=== PATIENT | male | born 1965 | race Caucasian/White ===

== ENCOUNTER 2016-06-05 16:05 | Emergency (ER) | payer OTHER ==
[~2016-06-05] VITALS: Ht 200.7 cm; Wt 105.0 kg
[~2016-06-05 16:05] MED LIST: METH500T3 PO; PERC5TAB12 PO
[2016-06-05 16:20] VITALS: BP 134/97; PULSE 75; RESP 16; TEMP 98.5; O2SAT 97
[2016-06-05] MEDS ORDERED: BP MED PO (16:32)
[2016-06-05] MEDS ORDERED: PRED20 PO (17:15)
[2016-06-05] MEDS ORDERED: ZITHTAB PO (17:15)
[2016-06-05] MEDS ORDERED: VENTAER INH (17:15)
[2016-06-05] MEDS ORDERED: BENZ100 PO (17:15)
--- NOTE | 2016-06-05 17:15 | PD ---
HPI Chief Complaint: Cold / Flu Symptoms Time Seen by Provider: 17:15 Travel History International Travel<30 days: No Contact w/Intl Traveler<30days: No Traveled to known affect area: No History of Present Illness HPI 50-year-old male with a history of hypertension presents to the emergency department for evaluation of relative cough and chest tightness. Patient states that for the past 6 days he has had a productive cough of yellow sputum. States over the past 2-3 days he has felt as though he has chest tightness and wheezing. States that the symptoms worsen at night. Denies fever, chills, nausea, vomiting, chest pain, shortness of breath, lightheadedness, dizziness, sore throat, ear pain. States that he has tried to take leftover steroids at home and his daughter's leftover amoxicillin and his daughter's nebulizer treatments. States that he has not had any improvement of symptoms with these medications. Denies any history of smoking or lung disease. No other complaints. PFSH Past Medical History Arthritis: No Blood Disorders: No Cancer: No Cardiovascular Problems: Yes (HTN) Chemotherapy: No Diminished Hearing: No Diverticulitis: Yes Endocrine: No Gastrointestinal Disorders: Yes (COLON RUPTURED 2006. PT HAD COLOSTOMY WHICH WAS REVERSED FEBRUARY 2007) GERD: No Glaucoma: No Gout: Yes Genitourinary: Yes (PROSTATITIS 03/26) Hepatitis: No Hiatal Hernia: No Hypertension: Yes Immune Disorder: No Kidney Stones: No Musculoskeletal: Yes (TENDONITIS RIGHT HEEL, AND HERNIATED DISC) Neurologic: No Psychiatric: No Reproductive: No Respiratory: No Immunizations Current: No Radiation Therapy: No Renal Failure: No Ulcer: No Tetanus Vaccination: Unknown Past Surgical History Abdominal Surgery: Yes (COLON RUPTURE X/ RESECTION, COLOSTOMY & REVERSAL 2006) AICD: No Appendectomy: No Arteriovenous Shunt: No Cardiac Surgery: No Cholecystectomy: No Ear Surgery: No Endocrine Surgery: No Eye Surgery: No Genitourinary Surgery: No Gynecologic Surgery: No Insulin Pump: No Joint Replacement: No Neurologic Surgery: No Oral Surgery: No Pacemaker: No Thoracic Surgery: No Other Surgery: Yes Social History Alcohol Use: No Tobacco Use: No Substance Use: No Allergies-Medications (Allergen,Severity, Reaction): Coded Allergies: No Known Allergies (Unverified , 06/05/16) Reported Meds & Prescriptions Reported Meds & Active Scripts Active Tessalon Perles (Benzonatate) 100 Mg Cap 100 Mg PO TID PRN 10 Days Ventolin Hfa 18 GM Inh (Albuterol Sulfate) 90 Mcg/Act Aer 2 Puff INH Q4-6H PRN Zithromax Z-Manpreet (Azithromycin) 250 Mg Dspk 250 Mg PO DIRECTED 500 MG (2 tabs) day 1, then 1 tab days 2-5. Prednisone 20 Mg Tab 20 Mg PO BID 5 Days Reported [Bp Med] 2.5 Mg PO DAILY Review of Systems Except as stated in HPI: all other systems reviewed are Neg Physical Exam Narrative GENERAL: Well-nourished and well-developed pleasant patient in no acute distress who is nontoxic appearing. SKIN: Warm and dry. HEAD: Normocephalic and atraumatic. EYES: No injection, drainage, or hyphema noted. PERRLA. EOMI. ENT: No nasal drainage noted. Oropharynx is clear and the TMs are normal with good landmarks. NECK: Supple and the trachea is midline. No lymphadenopathy is noted throughout the cervical chains. CARDIOVASCULAR: Regular rate and rhythm. RESPIRATORY: Breath sounds are equal bilaterally with no accessory muscle use, wheezing, rhonchi, or crackles. MUSCULOSKELETAL: No obvious deformities, swelling, cyanosis, or ecchymosis is present throughout the upper and lower extremities. Patient has full range of motion without any signs of neurovascular compromise. NEUROLOGICAL: Awake, alert, and oriented. Normal speech and gait. Cranial nerves are grossly intact. Data Data Last Documented VS Vital Signs Date Time Temp Pulse Resp B/P Pulse Ox O2 Delivery O2 Flow Rate FiO2 06/05/16 16:20 98.5 75 16 134/97 97 [facility] Medical Decision Making Medical Screen Exam Complete: Yes Emergency Medical Condition: Yes Differential Diagnosis Acute bronchitis versus pneumonia versus URI Narrative Course 50-year-old male presents to the emergency department for evaluation of productive cough and chest tightness. Patient is afebrile, vital signs are stable. Physical examination is essentially unremarkable. The patient has acute bronchitis. We'll give him a prescription for a Z-Manpreet, prednisone and an albuterol inhaler. Discussed supportive care and when to return to the emergency department. He is advised to follow-up with his PCP. Patient verbalizes understanding and agreement with treatment plan. Diagnosis Primary Impression: Acute bronchitis Qualified Code: J20.9 - Acute bronchitis, unspecified organism Referrals: Primary Care Physician Patient Instructions: Acute Bronchitis (ED), General Instructions Additional Instructions: Continue taking Robitussin or Mucinex. Take medications as prescribed with food and a full glass of water. Follow-up with your Primary Care Physician. Return to the ED for any acute worsening of symptoms. Med/Other Pt SpecificInfo: Prescription(s) given Scripts Benzonatate (Tessalon Perles)100 Mg [id number] Mg PO TID PRN (COUGH) 10 Days Ref 0 Prov:Mahamed Herrera MD 06/05/16 Albuterol 18 GM Inh (Ventolin Hfa 18 GM Inh)90 Mcg/Act Aer2 Puff INH Q4-6H PRN ( SHORTNESS OF BREATH) #1 INHALER Ref 0 Prov:Mahamed Herrera MD 06/05/16 Azithromycin (Zithromax Z-Manpreet)250 Mg [id number] Mg PO DIRECTED #1 DSPK Ref 0 500 MG (2 tabs) day 1, then 1 tab days 2-5. Prov:Mahamed Herrera MD 06/05/16 Prednisone 20 Mg Tab20 Mg PO BID 5 Days Ref 0 Prov:Mahamed Herrera MD 06/05/16 Disposition: 01 DISCHARGE HOME Condition: Stable Darline Pozo Jun 05, 2016 17:15
== END 2016-06-05 17:20 | disposition home or self-care (01) ==
LOC: PHEFT 16:05
DX: J20.9 Acute bronchitis, unspecified (principal); I10 Essential (primary) hypertension; M10.9 Gout, unspecified; R06.2 Wheezing
CPT/HCPCS: 99283

== ENCOUNTER 2016-09-01 12:35 | Emergency (ER) | payer OTHER ==
[~2016-09-01 12:35] MED LIST changes: +BENZ100 PO; +BP MED PO; -METH500T3 PO; -PERC5TAB12 PO; +PRED20 PO; +VENTAER INH; +ZITHTAB PO
[2016-09-01 12:50] VITALS: BP 142/93; PULSE 84; RESP 16; TEMP 98.6; O2SAT 96
[2016-09-01] MEDS ORDERED: SODIUM CHLORIDE 0.9% FLUSH 10 ML FLUSH IVF PRN (13:15)
--- NOTE | 2016-09-01 13:19 | PD ---
HPI Chief Complaint: Chest Pain Time Seen by Provider: 13:07 Travel History International Travel<30 days: No Contact w/Intl Traveler<30days: No Traveled to known affect area: No History of Present Illness HPI This patient complains of chest pain. Location is left upper chest. It radiates toward his left shoulder. It started at 845 this morning. She is getting out of the shower when this started. Not exerting. [place] like a pressure and aching. He took 4 baby aspirin. It went away shortly after. He went on with his day. However about 30 minutes ago it came back again and so he came to the emergency room. He has no personal history of cardiac disease. Severity is moderate. Aspirin seem to be and alleviating factor. Duration one day PFSH Past Medical History Arthritis: No Blood Disorders: No Cancer: No Cardiovascular Problems: Yes (HTN) Chemotherapy: No Diminished Hearing: No Diverticulitis: Yes Endocrine: No Gastrointestinal Disorders: Yes (COLON RUPTURED 2006. PT HAD COLOSTOMY WHICH WAS REVERSED FEBRUARY 2007) GERD: No Glaucoma: No Gout: Yes Genitourinary: Yes (PROSTATITIS 03/26) Hepatitis: No Hiatal Hernia: No Hypertension: Yes Immune Disorder: No Kidney Stones: No Musculoskeletal: Yes (TENDONITIS RIGHT HEEL, AND HERNIATED DISC) Neurologic: No Psychiatric: No Reproductive: No Respiratory: No Immunizations Current: No Radiation Therapy: No Renal Failure: No Ulcer: No Tetanus Vaccination: Unknown Influenza Vaccination: No Past Surgical History Abdominal Surgery: Yes (COLON RUPTURE X/ RESECTION, COLOSTOMY & REVERSAL 2006) AICD: No Appendectomy: No Arteriovenous Shunt: No Cardiac Surgery: No Cholecystectomy: No Ear Surgery: No Endocrine Surgery: No Eye Surgery: No Genitourinary Surgery: No Gynecologic Surgery: No Insulin Pump: No Joint Replacement: No Neurologic Surgery: No Oral Surgery: No Pacemaker: No Thoracic Surgery: No Other Surgery: Yes Social History Alcohol Use: No Tobacco Use: No Substance Use: No Allergies-Medications (Allergen,Severity, Reaction): Coded Allergies: No Known Allergies (Unverified , 09/01/16) Reported Meds & Prescriptions Reported Meds & Active Scripts Active Tessalon Perles (Benzonatate) 100 Mg Cap 100 Mg PO TID PRN 10 Days Ventolin Hfa 18 GM Inh (Albuterol Sulfate) 90 Mcg/Act Aer 2 Puff INH Q4-6H PRN Zithromax Z-Manpreet (Azithromycin) 250 Mg Dspk 250 Mg PO DIRECTED 500 MG (2 tabs) day 1, then 1 tab days 2-5. Prednisone 20 Mg Tab 20 Mg PO BID 5 Days Reported [Bp Med] 2.5 Mg PO DAILY Review of Systems General / Constitutional: No: Fever Eyes: No: Visual changes HENT: No: Headaches Cardiovascular: Positive: Chest Pain or Discomfort Respiratory: No: Shortness of Breath Gastrointestinal: No: Abdominal Pain Genitourinary: No: Dysuria Musculoskeletal: No: Pain Skin: No Rash Neurologic: No: Weakness Psychiatric: No: Depression Endocrine: No: Polydipsia Hematologic/Lymphatic: No: Easy Bruising Physical Exam Narrative GENERAL: Well-nourished, well-developed patient in no apparent distress. SKIN: Focused skin assessment reveals no rash and nodules. Skin is Warm and dry. HEAD: Atraumatic. Normocephalic. EYES: Pupils equal and round. No scleral icterus. No injection or drainage. ENT: No nasal bleeding or discharge. Mucous membranes pink and moist. NECK: Trachea midline. No JVD. CARDIOVASCULAR: Regular rate and rhythm. No murmur appreciated. RESPIRATORY: No accessory muscle use. Clear to auscultation. Breath sounds equal bilaterally. GASTROINTESTINAL: Abdomen soft, non-tender, nondistended. Hepatic and splenic margins not palpable. MUSCULOSKELETAL: No obvious deformities. No clubbing. No cyanosis. No edema. NEUROLOGICAL: Awake and alert. No obvious cranial nerve deficits. Motor grossly within normal limits. Normal speech. PSYCHIATRIC: Appropriate mood and affect; insight and judgment normal. Data Data Last Documented VS Vital Signs Date Time Temp Pulse Resp B/P Pulse Ox O2 Delivery O2 Flow Rate FiO2 09/01/16 12:55 Room Air 09/01/16 12:50 16 96 09/01/16 12:50 98.6 84 142/93 Orders Electrocardiogram (09/01/16 13:13) Basic Metabolic Panel (Bmp) (09/01/16 13:13) Ckmb (Isoenzyme) Profile (09/01/16 13:13) Complete Blood Count With Diff (09/01/16 13:13) Prothrombin Time / Inr (Pt) (09/01/16 13:13) Act Partial Throm Time (Ptt) (09/01/16 13:13) Troponin I (09/01/16 13:13) Chest, Single Ap (09/01/16 13:13) Ecg Monitoring (09/01/16 13:13) Iv Access Insert/Monitor (09/01/16 13:13) Oximetry (09/01/16 13:13) Sodium Chloride 0.9% Flush (Ns Flush) (09/01/16 13:15) CKMB (09/01/16 13:15) CKMB% (09/01/16 13:15) Labs Laboratory Tests Test 09/01/16 13:15 White Blood Count 7.8 TH/MM3 Red Blood Count 4.69 MIL/MM3 Hemoglobin 13.8 GM/DL Hematocrit 40.8 % Mean Corpuscular Volume 87.2 FL Mean Corpuscular Hemoglobin 29.4 PG Mean Corpuscular Hemoglobin 33.8 % Concent Red Cell Distribution Width 13.0 % Platelet Count 264 TH/MM3 Mean Platelet Volume 8.4 FL Neutrophils (%) (Auto) 65.9 % Lymphocytes (%) (Auto) 24.3 % Monocytes (%) (Auto) 6.0 % Eosinophils (%) (Auto) 3.4 % Basophils (%) (Auto) 0.4 % Neutrophils # (Auto) 5.1 TH/MM3 Lymphocytes # (Auto) 1.9 TH/MM3 Monocytes # (Auto) 0.5 TH/MM3 Eosinophils # (Auto) 0.3 TH/MM3 Basophils # (Auto) 0.0 TH/MM3 CBC Comment DIFF FINAL Differential Comment Prothrombin Time 10.7 SEC Prothromb Time International 1.0 RATIO Ratio Activated Partial 27.5 SEC Thromboplast Time Sodium Level 143 MEQ/L Potassium Level 3.7 MEQ/L Chloride Level 105 MEQ/L Carbon Dioxide Level 26.4 MEQ/L Anion Gap 12 MEQ/L Blood Urea Nitrogen 14 MG/DL Creatinine 1.10 MG/DL Estimat Glomerular Filtration 71 ML/MIN Rate Random Glucose 91 MG/DL Calcium Level 9.0 MG/DL Total Creatine Kinase 209 U/L Creatine Kinase MB 1.5 NG/ML Troponin I LESS THAN 0.02 NG/ML MDM Medical Decision Making Medical Screen Exam Complete: Yes Emergency Medical Condition: Yes Medical Record Reviewed: Yes Differential Diagnosis Differential diagnosis includes OK, angina, pericarditis, pleurisy, GERD, anxiety. Narrative Course I have reviewed the patient's electronic medical record. No prior stress testing here IV placed I reviewed the EKG which shows sinus rhythm and no ST elevation I reviewed the chest x-ray which is normal Extended cardiac monitoring shows sinus rhythm without ectopy CBC is normal Metabolic profile is normal CK is normal Troponin is normal Coagulation studies are normal He had multiple aspirin today Patient is multiple risk factors including hypertension and hyperlipidemia and family history of cardiac disease. I recommended telemetry observation in the chest pain center and discussed at length with the patient. We reviewed his risk factors and my rationale. He thought about it and is decided to sign out AGAINST MEDICAL ADVICE. I advised him to return if he worsens or changes his mind. He is planning to call his family physician discuss outpatient stress testing I told him to take a daily aspirin until that time Diagnosis Primary Impression: Chest pain in adult Disposition: 07 AGAINST MEDICAL ADVICE Red Tamayo MD Sep 01, 2016 13:19
[2016-09-01 13:28] LABS: AUTOMATED NEUTROPHIL # 5.1 TH/MM3 (1.8-7.7); BASOPHIL % 0.4 % (0.0-2.0); EOSINOPHIL # 0.3 TH/MM3 (0-0.4); EOSINOPHIL % 3.4 % (0.0-4.0); HEMATOCRIT 40.8 % (39.0-51.0); HEMO FLAGS DIFF FINAL; LYMPH % 24.3 % (9.0-44.0); LYMPHOCYTE # 1.9 TH/MM3 (1.0-4.8); MEAN CELL VOLUME 87.2 FL (80.0-100.0); MEAN CORPUSCULAR HEMOGLOBIN 29.4 PG (27.0-34.0); MEAN CORPUSCULAR HGB CONC 33.8 % (32.0-36.0); NEUT % 65.9 % (16.0-70.0); PLATELET COUNT 264 TH/MM3 (150-450); RED BLOOD COUNT 4.69 MIL/MM3 (4.50-5.90); WHITE BLOOD COUNT 7.8 TH/MM3 (4.0-11.0)
[2016-09-01 13:36] LABS: CHLORIDE 105 MEQ/L (98-107); POTASSIUM 3.7 MEQ/L (3.5-5.1); SODIUM (NA) 143 MEQ/L (136-145)
--- NOTE | 2016-09-01 13:36 | RADHPO ---
EXAM DATE/TIME: 09/01/2016 13:23 [facility] COMPARISON: CT PULMONARY ANGIOGRAM, February 16, 2016, 12:09. INDICATIONS : Left upper chest pain/pressure. MEDICAL HISTORY : Hypertension. Gout. Tendonitis heel. Herniated disc. SURGICAL HISTORY : Colostomy. Colostomy reversal. ENCOUNTER: Initial ACUITY: 1 day PAIN SCORE: 8/10 LOCATION: Left upper chest FINDINGS: A single view of the chest demonstrates the lungs to be symmetrically aerated without evidence of mas s, infiltrate or effusion. The cardiomediastinal contours are unremarkable. Osseous structures are intact. CONCLUSION: Normal examination. Humble Santiago MD on September 01, 2016 at 13:35 Board Certified Radiologist. This report was verified electronically.
[2016-09-01 13:39] LABS: ANION GAP 12 MEQ/L (5-15); BICARBONATE 26.4 MEQ/L (21.0-32.0); BLOOD UREA NITROGEN 14 MG/DL (7-18)
[2016-09-01 13:42] LABS: APTT (PATIENT) 27.5 SEC (24.3-30.1); GLOMERULAR FILTRATION RATE 71 ML/MIN (>89); PROTHROMBIN TIME - PATIENT 10.7 SEC (9.8-11.6)
[2016-09-01 13:45] LABS: CREATINE KINASE 209 U/L (39-308)
[2016-09-01 13:58] LABS: CKMB 1.5 NG/ML (0.5-3.6)
[2016-09-01 14:25] VITALS: BP 135/88
--- NOTE | 2016-09-02 14:12 | EKG ---
Date Performed: 09/01/2016 Time Performed: 12:40:06 PTAGE: 51 years EKG: Sinus rhythm Inferior T wave changes are nonspecific Compared to previous tracing, T wave inversion in lead III i s new and is of minor importance. Borderline ECG PREVIOUS TRACING : 10/31/2011 00.35 DOCTOR: Tripp Saul Interpretating Date/Time 09/02/2016 14:10:55
== END 2016-09-01 14:37 | disposition left against medical advice (07) ==
LOC: PHED 12:35
DX: R07.9 Chest pain, unspecified (principal); I10 Essential (primary) hypertension; M10.9 Gout, unspecified; E78.5 Hyperlipidemia, unspecified
CPT/HCPCS: 71010; 80048; 82550; 82552; 84484; 85025; 85610; 85730; 93005